=== PATIENT | female | born 1980 | race Caucasian/White ===

== ENCOUNTER → 2023-07-27 | Outpatient (CLI) | payer OTHER, SELFPAY ==
--- NOTE | 2023-07-27 16:18 | RAD_ITS ---
INDICATION: pain EXAMINATION/TECHNIQUE: X-RAY - LEFT XR Foot Min 3 Views COMPARISON: None. FINDINGS: No acute fracture or malalignment. No blastic or lytic lesions. Mild scattered degenerative changes. Small dorsal heel spur. The soft tissues are unremarkable. RAD/Foot min 3 Views IMPRESSION: No acute radiographic abnormalities. Small dorsal heel spur. Electronically Signed: Buddy Antony MD at 17:50 EDT ,
--- NOTE | 2023-07-27 16:18 | RAD_ITS ---
INDICATION: pain EXAMINATION/TECHNIQUE: X-RAY - LEFT XR Ankle Min 3 Views COMPARISON: None. FINDINGS: No acute fracture or malalignment. No blastic or lytic lesions. Mild scattered degenerative changes. Small dorsal heel spur. The soft tissues are unremarkable. RAD/Ankle min 3 Views IMPRESSION: No acute radiographic abnormalities. Small dorsal heel spur. Electronically Signed: Buddy Antony MD at 17:50 EDT ,
== END | disposition home or self-care (01) ==
LOC: MTRAD 16:16
PROVIDERS: Referring Provider Physician Assistant; Visit Provider Physician Assistant
DX: M79.672 Pain in left foot (principal); M25.572 Pain in left ankle and joints of left foot
CPT/HCPCS: 73610; 73630